=== PATIENT | male | born 1985 ===

== ENCOUNTER 2018-12-25 20:38 | Emergency (ER) | payer SELFPAY ==
[~2018-12-25] VITALS: Ht 170.2 cm; Wt 73.0 kg
[2018-12-25] MEDS ORDERED: ALBUTEROL/IPRATROPIUM 2.5MG/0.5MG, 3 ML NPPB ONE (21:30)
[2018-12-25] MEDS ORDERED: ALBUTEROL/IPRATROPIUM 2.5MG/0.5MG, 3 ML ONE (21:36)
[2018-12-25 22:17] LABS: BASOPHILS # (AUTO) 0.03 x10^3/uL (0-0.1); BASOPHILS % (AUTO) 0 % (0-1); EOSINOPHILS # (AUTO) 0.24 x10^3/uL (0-0.4); EOSINOPHILS % (AUTO) 4 % (1-7); LYMPHOCYTES # (AUTO) 1.31 x10^3/uL (1-3.4); LYMPHOCYTES % (AUTO) 20 % (22-44); MD NO; MEAN CORPUSCULAR HEMOGLOBIN 29.7 pg (27.5-34.5); MEAN CORPUSCULAR HGB CONC 34.1 g/dL (33.2-36.2); MEAN CORPUSCULAR VOLUME 87.1 fL (81-97); MEAN PLATELET VOLUME 7.9 fL (7.4-10.4); MONOCYTES # (AUTO) 0.71 x10^3/uL (0.2-0.8); MONOCYTES % (AUTO) 11 % (2-9); NEUTROPHILS % (AUTO) 65 % (42-75); PLATELET COUNT 240 x10^3/uL (130-400); RED BLOOD COUNT 4.55 x10^6/uL (4.38-5.82); RED CELL DISTRIBUTION WIDTH 12.7 % (9.4-14.8)
--- NOTE | 2018-12-25 22:18 | NUR ---
REPORT TO NADJA NAJERA WHO ASSUMED CARE OF PT.
[2018-12-25 22:29] LABS: ANION GAP 6 mmol/L (5-15); CALCIUM 8.7 mg/dL (8.5-10.1); CHLORIDE 107 mmol/L (98-107)
[2018-12-25 22:30] LABS: CREATININE 0.77 mg/dL (0.7-1.3)
--- NOTE | 2018-12-25 22:39 | NUR ---
PT BACK FROM CT. PT SLEEPING IN NAD. PT COMPLAINING OF CHEST PAIN BUT SAYS IT IS BETTER NOW. VSS. PT GIVEN URINAL FOR UA. PT HAS NO OTHER NEEDS AT THIS TIME. CALL LIGHT IN REACH
[2018-12-25 22:50] VITALS: BP 150/87
--- NOTE | 2018-12-25 23:13 | NUR ---
PT VERBALIZED UNDERSTANDING OF DISCHARGE AND FOLLOW UP INSTRUCTIONS. PT GETTING DRESSED.
--- NOTE | 2018-12-25 23:28 | NUR ---
PT SLEEPING IN ROOM AND REFUSING TO GET UP. SECURITY CALL TO ASSIST WITH DISCHARGE
== END 2018-12-25 23:35 | disposition home or self-care (01) ==
LOC: ED 23:00
DX: R07.89 Other chest pain (principal); R42 Dizziness and giddiness; F15.10 Other stimulant abuse, uncomplicated; R11.2 Nausea with vomiting, unspecified; R05 Cough; F17.210 Nicotine dependence, cigarettes, uncomplicated
CPT/HCPCS: 36415; 70450; 71046; 80048; 85025; 93005; 94640; 99284; J7620